=== PATIENT | male | born 1945 | race Caucasian/White ===

== ENCOUNTER 2022-05-07 17:39 | Emergency (ER) | payer OTHER, SELFPAY ==
--- NOTE | 2022-05-07 18:00 | ED.NURSE ---
Pt chose to not see an MD. Refusal of services signed
--- NOTE | 2022-05-12 16:54 | ED.GENADULT ---
HPI - General Adult General Chief complaint: Skin/Abscess/Foreign Body Stated complaint: Piece of hearing aid stuck in ear Time Seen by Provider: 05/07/22 18:05 History of Present Illness HPI narrative: Patient left before being seen by any provider Related Data Home Medications Medication Instructions Recorded Confirmed aspirin 81 mg tablet,delayed 81 mg PO DAILY 05/08/22 05/08/22 release (Adult Aspirin Regimen) glucosamine HCl .ROUTE 05/08/22 Allergies Allergy/AdvReac Type Severity Reaction Status Date / Time No Known Drug Allergies Allergy Verified 05/08/22 13:24 PFSH PFSH Social History Smoking Status: Former smoker Do you use any of these nicotine containing products: None Second hand tobacco smoke exposure: No How often do you have a drink containing alcohol: 4 or more times a week How many standard drinks containing alcohol do you have on a typical day: 3 or 4 AUDIT-C Alcohol total score: 5 Non-prescribed substance use: denies use Discharge Plan Discharge Patient Disposition: Elop[facility]
== END 2022-05-07 18:19 | disposition left against medical advice (07) ==
PROVIDERS: Emergency Provider Family Medicine; PCP Family Medicine
DX: Z53.21 Procedure and treatment not carried out due to patient leaving prior to being seen by health care provider (principal)
CPT/HCPCS: 99281

== ENCOUNTER 2022-05-08 13:09 | Emergency (ER) | payer OTHER, SELFPAY ==
[2022-05-08 13:15] VITALS: BP 137/73; PULSE 60; RESP 16; TEMP 36.2; O2SAT 96; BMI 27.3
--- NOTE | 2022-05-08 13:28 | ED.WOUNDLAC ---
HPI - Wound/Laceration General Time Seen by Provider: 13:28 Date Seen: 05/08/22 Chief Complaint: Laceration/Wound Stated Complaint: R palm laceration Time Seen by Provider: 05/08/22 13:28 Source: patient, family and RN notes reviewed Mode of arrival: ambulatory Limitations: no limitations History of Present Illness HPI narrative: Sudeep is a very pleasant 76-year-old gentleman with tetanus within the last 5 years who comes to the emergency room with complaints of a laceration to the right thenar eminence of the right hand. Patient noted that he was walking and he actually fell through a animal tunnel underneath the ground. When he fell he struck his right hand against some concrete that caused a flap laceration. He denies numbness or tingling distally. He states he washed it out after it had blood considerably. Has no problems with movement of his thumb. No past history of difficulty with wounds in healing or with frequent infections. Onset (ago): hour(s) Place: home Patient tetanus UTD: Yes Context: accidental Related Data Home Medications Medication Instructions Recorded Confirmed aspirin 81 mg tablet,delayed 81 mg PO DAILY 05/08/22 05/08/22 release (Adult Aspirin Regimen) glucosamine HCl .ROUTE 05/08/22 Allergies Allergy/AdvReac Type Severity Reaction Status Date / Time No Known Drug Allergies Allergy Verified 05/08/22 13:24 Review of Systems Narrative: Patient denies numbness or tingling. He is able to move wrist and hand without difficulty. Denies any other injury. PFSH PFSH Social History Smoking Status: Former smoker Do you use any of these nicotine containing products: None Second hand tobacco smoke exposure: No How often do you have a drink containing alcohol: 4 or more times a week How many standard drinks containing alcohol do you have on a typical day: 3 or 4 AUDIT-C Alcohol total score: 5 Non-prescribed substance use: denies use Exam Const: Vital Signs, click to edit/add: Vital Signs - 24 hr 05/08/22 13:15 Temperature 97.2 F L Pulse Rate [Pulse Oximeter] 60 Respiratory Rate 16 Blood Pressure [Le ft Upper Arm] 137/73 Pulse Oximetry 96 Oxygen Delivery Me thod Room Air Documenting provider has reviewed patient's vital signs: yes Common normals: no apparent distress, average body habitus and oriented x3 General appearance: cooperative and comfortable HENMT: Common normals: normocephalic and head/scalp atraumatic Head and scalp: normocephalic and atraumatic Eye: General eye: normal appearance of both eyes Neck & C-Spine: Common normals: full ROM Resp: Common normals: normal respiratory effort Extremity: Other: Right wrist with full range of motion. Thumb to pinky with good strength intact. Distally sensation is intact. Neuro: Common normals: oriented x3 Psych: Common normals: mental status grossly normal Skin: Narrative: Right hand shows a wide V shaped laceration at the thenar eminence. This compromises epidermis dermis and partially compromises subcutaneous tissue. Muscle is visualized and appears to be intact. No foreign bodies are noted. Laceration measures approximately 5.5 cm. Course Course Hospital Course: At this time will numb the wound and have it irrigated. Plan for simple repair with nylon sutures. Distally sensation and motor intact. Vital Signs Vital signs: Initial Vital Signs Temperature 97.2 F L 05/08/22 13:15 Temperature Source Temporal Artery Scan 05/08/22 13:15 Pulse Rate 60 05/08/22 13:15 Respiratory Rate 16 05/08/22 13:15 Blood Pressure 137/73 05/08/22 13:15 Blood Pressure Mean 94 05/08/22 13:15 Blood Pressure Position Sitting 05/08/22 13:15 Pulse Oximetry 96 05/08/22 13:15 Oxygen Delivery Method 05/08/22 13:15 Vital Signs Temperature 97.2 F L 05/08/22 13:15 Pulse Rate 60 05/08/22 13:15 Respiratory Rate 16 05/08/22 13:15 Blood Pressure 137/73 05/08/22 13:15 Pulse Oximetry 96 05/08/22 13:15 Oxygen Delivery Method 05/08/22 13:15 Temperature 97.2 F L 05/08/22 13:15 Pulse Rate 60 05/08/22 13:15 Respiratory Rate 16 05/08/22 13:15 Blood Pressure 137/73 05/08/22 13:15 Pulse Oximetry 96 05/08/22 13:15 Oxygen Delivery Method 05/08/22 13:15 MDM - Wound/Laceration MDM Narrative Medical decision making narrative: 1. Laceration repair-patient will have sutures removed in 10 days time. He does plan on going back to work but I have asked him to limit movement of the right hand for 48 hours in order to let those skin edges start to adhere to each other. Monitor for signs and symptoms of infection and return to the emergency room for redness, drainage, fever, onset of Infectious like symptoms. Do not so can not but may shower. 2. Disposition-home in care of . Return as needed. Medical Records Attestation: I reviewed the patient's medical records. Discharge Plan Discharge Clinical Impression: Laceration Patient Disposition: Home, Self-Care Condition: Improved Additional Instructions: limit movement of the right hand for 48 hours in order to let those skin edges start to adhere to each other. Monitor for signs and symptoms of infection and return to the emergency room for redness, drainage, fever, onset of Infectious like symptoms. Suture removal in 10 days time. Ibuprofen or Tylenol may be used for discomfort. Prescriptions: No Action aspirin [Adult Aspirin Regimen] 81 mg tablet,delayed release (DR/EC) 81 mg PO DAILY glucosamine HCl .ROUTE Follow Up/Referrals: Louis Kaufman MD [Primary Care Provider] - Stand Alone Forms: [facility] Info Instructions Procedures Laceration Laceration 1: Pre procedure diagnosis: Right hand laceration Post procedure diagnosis: Right hand laceration repair Name of person performing procedure: Shannon Abrams Site: hand Side (If applicable): right Description: flap and clean Depth: simple, single layer Local Anesthetic: lidocaine 1% and with epi Amount of anesthesia used (mL): 6 Pre-repair: wound explored and irrigated extensively Skin layer closed with: nylon Size (cm): 5-0 Number of sutures: 8 Technique: simple, interrupted Conclusion: patient tolerated procedure (Good wound approximation achieved)
== END 2022-05-08 14:51 | disposition home or self-care (01) ==
LOC: ED 14:12
PROVIDERS: Emergency Provider Family Medicine; PCP Family Medicine
DX: S61.411A Laceration without foreign body of right hand, initial encounter (principal); W19.XXXA Unspecified fall, initial encounter
CPT/HCPCS: 12002; 99283

== ENCOUNTER 2023-05-12 08:11 | Emergency (ER) | payer OTHER, SELFPAY ==
[2023-05-12 08:31] VITALS: BP 162/74; PULSE 61; RESP 16; TEMP 36.6; O2SAT 98; BMI 25.8
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
[2023-05-12 09:08] VITALS: BP 158/88; PULSE 64; RESP 16; O2SAT 95
== END 2023-05-12 09:09 | disposition home or self-care (01) ==
LOC: ED 09:05
PROVIDERS: Emergency Provider Emergency Medicine Emergency Medical Services; PCP Family Medicine
DX: R07.89 Other chest pain (principal)
CPT/HCPCS: 99284

== ENCOUNTER 2024-06-29 11:01 | Emergency (ER) | payer OTHER, SELFPAY ==
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
--- NOTE | 2024-06-29 13:52 | ED.GENADULT ---
HPI - General Adult General Stated complaint: possible leg clot Time Seen by Provider: 06/29/24 11:49 History of Present Illness HPI narrative: This patient left without being seen Related Data Home Medications ?Medication ?Instructions ?Recorded ?Confirmed aspirin 81 mg tablet,delayed 81 mg PO DAILY 05/08/22 05/08/22 release (Adult Aspirin Regimen) glucosamine HCl .ROUTE 05/08/22 Allergies Allergy/AdvReac Type Severity Reaction Status Date / Time No Known Drug Allergies Allergy Verified 05/08/22 13:24 PFSH PFSH Social History Smoking Status: Former smoker Do you use any of these nicotine containing products: None Second hand tobacco smoke exposure: No How often do you have a drink containing alcohol: 4 or more times a week How many standard drinks containing alcohol do you have on a typical day: 3 or 4 AUDIT-C Alcohol total score: 5 Non-prescribed substance use: denies use Discharge Plan Discharge Patient Disposition: Left Without Being Seen
== END 2024-06-29 11:51 | disposition left against medical advice (07) ==
PROVIDERS: Emergency Provider Emergency Medicine; PCP Family Medicine
DX: Z53.21 Procedure and treatment not carried out due to patient leaving prior to being seen by health care provider (principal)
CPT/HCPCS: 99281